=== PATIENT | female | born 1990 | race Caucasian/White ===

== ENCOUNTER 2023-08-09 23:48 | Emergency (ER) | payer SELFPAY ==
[~2023-08-09] VITALS: Ht 172.7 cm; Wt 70.0 kg
[2023-08-09 23:51] VITALS: TEMP 98.5; O2SAT 98
[2023-08-10] MEDS ORDERED: TETANUS, DIPHTHERIA, PERTUSSIS VAC/PF 0.5ML (>10YR OLD) IM ONE (00:30)
[2023-08-10] MEDS ORDERED: ACETAMINOPHEN 500MG TABLET PO ONE (00:30)
[2023-08-10] MEDS ORDERED: LIDOCAINE HCL/PF 1% 10 MG/ML 5ML VIAL INFIL ONE (00:30)
[2023-08-10] MEDS ORDERED: HYDR-4001 MT ×3 (02:44→02:56)
[2023-08-10] MEDS ORDERED: KETOROLAC 30MG/ML VIAL IM ONE (02:45)
[2023-08-10 03:15] VITALS: BP 146/84; PULSE 101; RESP 16
[2023-08-10] MEDS ORDERED: KETOROLAC 30MG/ML VIAL IM NR (03:15)
== END 2023-08-10 03:16 | disposition home or self-care (01) ==
LOC: ER 08-10 00:40
DX: S01.91XA Laceration without foreign body of unspecified part of head, initial encounter (principal); S09.90XA Unspecified injury of head, initial encounter; W13.8XXA Fall from, out of or through other building or structure, initial encounter; Y93.89 Activity, other specified; Y92.89 Other specified places as the place of occurrence of the external cause; Y99.8 Other external cause status
CPT/HCPCS: 71045; 70450; 72125; 12002; 96372; 99285; J1885; Z7610 ×2